=== PATIENT | female | born 2000 | race Caucasian/White ===

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

== ENCOUNTER → 2023-07-28 | Day surgery (SDC) | payer OTHER ==
[~2023-07-28] MED LIST: Dexamethasone 4 MG/ML SDV ONE; Glycopyrrolate 0.2 MG/ML 5 ML MDV ONE; Neostigmine Methylsulfate 10 MG/10 ML MDV ONE; Ondansetron 4 MG/2 ML SDV ONE; Propofol 200 MG/20 ML SDV ONE; Rocuronium 50 MG/5 ML Vial ONE; fentaNYL 250 MCG/5 ML SDV ONE
[2023-07-28 09:27] LABS: ANION GAP 17.5 mmol/L (5.0-14.0); CALCIUM 9.1 mg/dL (8.5-10.1); CREATININE 0.7 mg/dL (0.6-1.0); EST CRCL DRUG DOSING (CG) 123.63 mL/min; POTASSIUM,K 3.5 mmol/L (3.6-5.2)
[2023-07-28] MEDS: Lactated Ringers 1,000 ML IV SCH (09:27)
[2023-07-28] MEDS: Oxymetazoline 0.05% Nasal Spray 30 ML Bottle ONE (10:51)
[2023-07-28] MEDS: Acetaminophen/HYDROcodone 108-2.5 MG/5 ML Soln 15 ML UD Cup PO ONE (12:34)
[2023-07-28 13:47] VITALS: PULSE 82
[2023-07-28 14:23] VITALS: BP 98/53
== END ==
LOC: JP.SDS 08:47
PROVIDERS: ATTEND Otolaryngology
DX: J35.1 Hypertrophy of tonsils (principal); J31.2 Chronic pharyngitis; J36 Peritonsillar abscess; F17.290 Nicotine dependence, other tobacco product, uncomplicated; Z88.8 Allergy status to other drugs, medicaments and biological substances
CPT/HCPCS: 36415; 42821; 80048; 81025; A9270; J1100; J2405; J2704; J2710; J3010; J3490; J7120; 88304